=== PATIENT | female | born 1940 | race Caucasian/White ===

== ENCOUNTER 2018-01-26 17:41 | Inpatient (IN) | payer MEDICARE, OTHER ==
[~2018-01-26] VITALS: Ht 154.9 cm; Wt 53.7 kg
[~2018-01-26 17:41] MED LIST: SYNTHROID100 MCG PO
[2018-01-26] MEDS ORDERED: CEFAZOLIN SOD 1 GM/D5W 50ML 50 ML IV STA (19:30)
[2018-01-26] MEDS ORDERED: ONDANSETRON HCL INJ 2 MG/ML VIAL IV STA (20:02)
[2018-01-26] MEDS ORDERED: LEVOFLOXACIN 500MG/D5W 100ML 100 ML IV STA (20:48)
[2018-01-26] MEDS ORDERED: CEFTRIAXONE SOD 1 GM VIAL IM STA (20:48)
[2018-01-26] MEDS: SODIUM CHLORIDE 0.9% 1000ML 1,000 ML IV SCH (21:00)
[2018-01-26] MEDS: CEFTRIAXONE SOD 1 GM VIAL IV SCH (21:00)
[2018-01-26] MEDS: ONDANSETRON HCL INJ 2 MG/ML VIAL IV PRN (22:18)
[2018-01-26] MEDS ORDERED: TRAMADOL HCL 50 MG TAB PO PRN (23:30)
[2018-01-27] VITALS (8 sets, daily range): BP systolic 109–157; BP diastolic 55–70
[2018-01-27] MEDS: ONDANSETRON HCL INJ 2 MG/ML VIAL IV PRN ×2 (02:21→08:15)
[2018-01-27 04:50] LABS: BASOPHILS % 0.3 % (0.0-1.0); HEMATOCRIT 37.9 % (34.2-44.1); HEMOGLOBIN 12.6 g/dL (12.0-16.0); LYMPHOCYTES # (AUTO) 0.9 (1.0-3.2); LYMPHOCYTES % 5.8 % (18.0-39.1); MEAN CORPUSCULAR HEMOGLOBIN 32.4 pg (28-32); MEAN CORPUSCULAR HGB CONC 33.2 g/dL (31-35); MEAN CORPUSCULAR VOLUME 97.4 fL (81-99); MONOCYTES # (AUTO) 1.1 (0.2-0.8); MONOCYTES % 7.6 % (4.4-11.3); NEUTROPHILS # (AUTO) 12.7 (2.1-6.9); NEUTROPHILS % 85.8 % (38.7-80.0); PLATELET COUNT 171 x10e3/uL (140-360); RED BLOOD COUNT 3.89 x10e6/uL (3.6-5.1); RED CELL DISTRIBUTION WIDTH 13.5 % (11.7-14.4)
[2018-01-27 05:11] LABS: ANION GAP 13.9 mmol/L (8-16); BLOOD UREA NITROGEN 13 mg/dL (7-26); BUN/CREATININE RATIO 20 (6-25); CALCIUM 8.4 mg/dL (8.4-10.2); CARBON DIOXIDE 22 mmol/L (22-29); CHLORIDE 104 mmol/L (98-107); CREATININE, SERUM 0.66 mg/dL (0.57-1.11); EST GLOMERULAR FILTRATION RATE > 60 ML/MIN (60-); GLUCOSE 153 mg/dL (74-118); POTASSIUM 3.9 mmol/L (3.5-5.1); SODIUM 136 mmol/L (136-145)
[2018-01-27] MEDS ORDERED: VANCOMYCIN 1GM/NS 250 ML 250 ML IV SCH (07:15)
[2018-01-27] MEDS: ACETAMINOPHEN 325 MG TAB PO PRN ×3 (07:39→23:00)
[2018-01-27] MEDS: PANTOPRAZOLE 40 MG 10ML VIAL IV SCH (08:15)
[2018-01-27] MEDS ORDERED: DIPHENHYDRAMINE HCL INJ 50 MG/ML VIAL IV PRN (10:45)
[2018-01-27] MEDS ORDERED: DIPHENHYDRAMINE HCL INJ 50 MG/ML VIAL IV NR (10:45)
[2018-01-27] MEDS: SODIUM CHLORIDE 0.9% 1000ML 1,000 ML IV SCH ×2 (10:52→22:00)
[2018-01-27] MEDS: CEFTRIAXONE SOD 1 GM VIAL IV SCH ×2 (11:04→20:11)
[2018-01-27] MEDS ORDERED: DIPHENHYDRAMINE HCL 25 MG CAP PO ONE (11:15)
[2018-01-27] MEDS: CLINDAMYCIN 300MG 50 ML IV SCH ×2 (18:39→21:08)
[2018-01-27] MEDS: ZOLPIDEM TARTRATE 5 MG TAB PO PRN (20:45)
[2018-01-27] MEDS ORDERED: LEVOFLOXACIN 500MG/D5W 100ML 100 ML IV SCH (21:00)
[2018-01-28 00:13] VITALS: BP 102/51
[2018-01-28] MEDS: SODIUM CHLORIDE 0.9% 1000ML 1,000 ML IV SCH ×2 (01:31→14:53)
[2018-01-28] MEDS: CLINDAMYCIN 300MG 50 ML IV SCH ×3 (05:34→20:59)
[2018-01-28 05:35] VITALS: BP 149/64
[2018-01-28] MEDS: ACETAMINOPHEN 325 MG TAB PO PRN (05:54)
[2018-01-28] MEDS: CEFTRIAXONE SOD 1 GM VIAL IV SCH ×2 (08:36→20:59)
[2018-01-28] MEDS: PANTOPRAZOLE 40 MG 10ML VIAL IV SCH (08:36)
[2018-01-28 09:43] VITALS: BP 149/65
[2018-01-28 12:00] VITALS: BP 145/65
[2018-01-28 17:32] VITALS: BP 187/73
[2018-01-28] MEDS: ZOLPIDEM TARTRATE 5 MG TAB PO PRN (20:59)
[2018-01-28] MEDS: ONDANSETRON HCL INJ 2 MG/ML VIAL IV PRN (20:59)
[2018-01-29] VITALS (8 sets, daily range): BP systolic 126–183; BP diastolic 69–75
[2018-01-29] MEDS: CLINDAMYCIN 300MG 50 ML IV SCH ×3 (05:58→21:32)
[2018-01-29] MEDS: SODIUM CHLORIDE 0.9% 1000ML 1,000 ML IV SCH ×3 (05:58→20:33)
[2018-01-29 06:03] LABS: BASOPHILS % 0.4 % (0.0-1.0); EOSINOPHILS # (AUTO) 0.1 (0.0-0.4); EOSINOPHILS % 1.4 % (0.0-6.0); HEMATOCRIT 33.6 % (34.2-44.1); HEMOGLOBIN 11.1 g/dL (12.0-16.0); LYMPHOCYTES % 19.4 % (18.0-39.1); MEAN CORPUSCULAR HEMOGLOBIN 32.3 pg (28-32); MEAN CORPUSCULAR VOLUME 97.7 fL (81-99); MONOCYTES # (AUTO) 0.5 (0.2-0.8); MONOCYTES % 9.5 % (4.4-11.3); NEUTROPHILS # (AUTO) 3.4 (2.1-6.9); NEUTROPHILS % 68.7 % (38.7-80.0); PLATELET COUNT 173 x10e3/uL (140-360); RED BLOOD COUNT 3.44 x10e6/uL (3.6-5.1); RED CELL DISTRIBUTION WIDTH 13.5 % (11.7-14.4)
[2018-01-29 06:26] LABS: ALANINE AMINOTRANSFERASE 19 IU/L (0-55); ALBUMIN 2.5 g/dL (3.5-5.0); ALKALINE PHOSPHATASE 35 IU/L (40-150); ANION GAP 11.5 mmol/L (8-16); BLOOD UREA NITROGEN 6 mg/dL (7-26); BUN/CREATININE RATIO 10 (6-25); CALCIUM 7.6 mg/dL (8.4-10.2); CARBON DIOXIDE 23 mmol/L (22-29); CHLORIDE 113 mmol/L (98-107); CREATININE, SERUM 0.61 mg/dL (0.57-1.11); EST GLOMERULAR FILTRATION RATE > 60 ML/MIN (60-); GLUCOSE 96 mg/dL (74-118); POTASSIUM 3.5 mmol/L (3.5-5.1); SODIUM 144 mmol/L (136-145)
[2018-01-29] MEDS: PANTOPRAZOLE 40 MG 10ML VIAL IV SCH (09:15)
[2018-01-29] MEDS: ONDANSETRON HCL INJ 2 MG/ML VIAL IV PRN (09:15)
[2018-01-29] MEDS: CEFTRIAXONE SOD 1 GM VIAL IV SCH ×2 (09:15→20:33)
[2018-01-29] MEDS: ACETAMINOPHEN 325 MG TAB PO PRN (18:03)
[2018-01-29] MEDS: ZOLPIDEM TARTRATE 5 MG TAB PO PRN (21:32)
[2018-01-30] VITALS (8 sets, daily range): BP systolic 131–168; BP diastolic 60–75
[2018-01-30] MEDS: CLINDAMYCIN 300MG 50 ML IV SCH ×3 (05:23→21:28)
[2018-01-30] MEDS: ACETAMINOPHEN 325 MG TAB PO PRN (07:37)
[2018-01-30] MEDS: ONDANSETRON HCL INJ 2 MG/ML VIAL IV PRN (09:07)
[2018-01-30] MEDS: PANTOPRAZOLE 40 MG 10ML VIAL IV SCH (09:07)
[2018-01-30] MEDS: CEFTRIAXONE SOD 1 GM VIAL IV SCH ×2 (09:07→20:46)
[2018-01-30] MEDS: SODIUM CHLORIDE 0.9% 1000ML 1,000 ML IV SCH (12:52)
[2018-01-31] VITALS (7 sets, daily range): BP systolic 132–175; BP diastolic 63–76
[2018-01-31] MEDS: CLINDAMYCIN 300MG 50 ML IV SCH ×3 (06:31→21:11)
[2018-01-31] MEDS: ACETAMINOPHEN 325 MG TAB PO PRN ×2 (06:35→21:11)
[2018-01-31] MEDS: TRAMADOL HCL 50 MG TAB PO PRN ×2 (07:56→14:52)
[2018-01-31] MEDS: PANTOPRAZOLE 40 MG 10ML VIAL IV SCH (08:50)
[2018-01-31] MEDS: CEFTRIAXONE SOD 1 GM VIAL IV SCH ×2 (08:50→21:00)
[2018-01-31] MEDS: SODIUM CHLORIDE 0.9% 1000ML 1,000 ML IV SCH (13:30)
[2018-01-31] MEDS ORDERED: LORAZEPAM 0.5 MG TAB PO ONE (15:30)
--- NOTE | 2018-01-31 17:09 | Diagnostic Imaging Report ---
Examination: CT head without contrast Clinical Indication: Temporal and frontal headache. Technique: Transaxial noncontrast images from the skull base through the vertex were obtained. Sagittal and coronal reformatted images were done. Dose modulation, iterative reconstruction, and/or weight based adjustment of the mA/kV was utilized to reduce the radiation dose to as low as reasonably achievable. Comparison: The images are prior head CT performed on January 25, 2013 are inaccessible at this time. Findings: Scalp: No abnormalities. Bones: Intact. No fractures. No blastic or lytic lesions. Brain sulci: Appropriate for patient's age. Ventricles: Normal in size and configuration. No hydrocephalus. . Extra-axial space: No abnormalities. Parenchyma: There are confluent and patchy areas of low-attenuation within subcortical and periventricular white matter, nonspecific, but could represent microvascular ischemic disease. No masses, hemorrhage, or acute or chronic cortical based vascular insults. Suprasellar region: No abnormalities. Craniocervical junction: The foramen magnum is patent. No Chiari one malformation. Incidental findings: Atherosclerotic calcification of the cavernous and supraclinoid internal carotid and V4 segments of the bilateral vertebral arteries. Impression: 1. No acute intracranial finding. 2. Moderate chronic microvascular ischemic change. Signed by: Dr. Agata Martell M.D. on 01/31/2018 5:06 PM
[2018-02-01 00:10] VITALS: BP 166/71
[2018-02-01 04:35] VITALS: BP 163/76
[2018-02-01] MEDS: CLINDAMYCIN 300MG 50 ML IV SCH (05:24)
[2018-02-01] MEDS ORDERED: ONDANSETRON HCL 4 MG ORAL DISINTEGRATING TAB PO PRN (05:30)
[2018-02-01] MEDS ORDERED: DIPHENHYDRAMINE HCL 25 MG CAP PO PRN (05:30)
[2018-02-01 08:00] VITALS: BP 168/72
[2018-02-01 08:20] VITALS: BP 168/72
[2018-02-01] MEDS ORDERED: PANTOPRAZOLE SOD 40 MG TABEC PO SCH (09:00)
[2018-02-01 12:00] VITALS: BP 180/81
[2018-02-01] MEDS ORDERED: CIPROFLOXACIN 500 MG TAB PO SCH (12:00)
--- OUTSIDE RECORDS SUMMARY | 2018-03-07 04:24 | XMS REPORT ---
Author Author Michael Fong eClinicalWorks Address Unknown Phone Unavailable Care Team Providers Care Outboard System Operator Name Role Phone Michael Fong CP Unavailable Allergies, Adverse Reactions, Alerts Substance Reaction Event Type N.K.D.A. 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 Assessment Polymyalgia rheumatica M35.3 Active Assessment Oth disrd of bone density and structure, 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 Points: 0, Interpretation: Negative Mar 29, 2015 Tobacco Use: . Are you a:: never smoker Mar 29, 2015 Marital Status: . Mar 29, 2015 Caffeine: no. Mar 29, 2015 Exercise: yes. gym and walking Mar 29, 2015 Alcohol: no. Mar 29, 2015 Vital Signs Date/Time: Mar 29, 2015 Weight 107 lbs Height 62 in Temperature 97.1 F Cardiac Monitoring Heart Rate 74 /min Blood Pressure Diastolic 76 mm Hg Blood Pressure Systolic 112 mm Hg Summary Purpose eClinicalWorks Submission
--- OUTSIDE RECORDS SUMMARY | 2018-03-07 04:24 | XMS REPORT ---
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
--- OUTSIDE RECORDS SUMMARY | 2018-03-07 04:24 | XMS REPORT ---
Author Author Michael Fong eClinicalWorks Address Unknown Phone Unavailable Care Team Providers Care Aircraft Engine Assembler Name Role Phone Michael Fnog CP Unavailable Allergies, Adverse Reactions, Alerts Substance Reaction Event Type N.K.D.A. 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 Problem Polymyalgia rheumatica 725 Active Problem Osteoporosis M81.0 Active Problem Polymyalgia rheumatica M35.3 Active Assessment Polymyalgia rheumatica M35.3 Active Problem Unspecified retinal vascular occlusion 362.30 Active Problem Osteopenia 733.90 Active Medications Medication Code System Code Instructions Start Date End Date Status Dosage Vitamin D MEDISPAN [address]-45 2000 UNIT Orally Once a day Active 1 capsule Calcium + D MEDISPAN 00976-44721 315-200 MG-UNIT Orally qd Active 1 Synthroid MEDISPAN [address]-50 100 MCG Orally Once a day Active 1 tablet every morning on an empty stomach Social History Social History Element Qualifiers Date Reported Alcohol Screening: . Points: 0, Interpretation: Negative Jan 04, 2016 Tobacco Use: . Are you a:: never smoker Jan 04, 2016 Marital Status: . Jan 04, 2016 Caffeine: no. Jan 04, 2016 Exercise: yes. gym and walking Jan 04, 2016 Alcohol: no. Jan 04, 2016 Vital Signs Date/Time: Jan 04, 2016 Weight 104 lbs Height 62 in Temperature 97.8 F Cardiac Monitoring Heart Rate 68 /min Blood Pressure Diastolic 76 mm Hg Blood Pressure Systolic 120 mm Hg Summary Purpose eClinicalWorks Submission
--- OUTSIDE RECORDS SUMMARY | 2018-03-07 04:24 | XMS REPORT ---
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 Assessment 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 other part of lower leg I83.028 Active Medications Medication Code System Code Instructions Start Date End Date Status Dosage Synthroid [facility] 03625846243 100 MCG Once a day/brand necessary May 21, 2012 Active 1 tablet on an empty stomach in the morning Vital Signs Date/Time: December 26, 2016 BMI 19.02 Index Weight 104 lbs Blood Pressure Systolic 142 mm Hg Respiratory Rate 0 /min Cardiac Monitoring Heart Rate 49 /min Temperature 0 F Blood Pressure Diastolic 80 mm Hg Results No Known Results Summary Purpose eClinicalWorks Submission
--- OUTSIDE RECORDS SUMMARY | 2018-03-07 04:24 | XMS REPORT ---
Author Author Michael Fong [facility] eClinicalWorks Address Unknown Phone Unavailable Care Team Providers Care Police Records Clerk Name Role Phone Michael Fong CP Unavailable Allergies, Adverse Reactions, Alerts Substance Reaction Event Type N.K.D.A. 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 Assessment Polymyalgia rheumatica 725 Active Assessment Unspecified retinal vascular occlusion 362.30 Active Medications Medication Code System Code Instructions Start Date End Date Status Dosage Calcium + D MEDISPAN 00439-60014 315-200 MG-UNIT Orally qd Active 1 Vitamin D MEDISPAN [address]-85 2000 UNIT Orally Once a day Active 1 capsule Synthroid MEDISPAN [address]-28 100 MCG Orally Once a day Active 1 tablet every morning on an empty stomach Medrol MEDISPAN [address]-80 2 MG Orally once a day Active take 1 tablet by mouth daily Social History Social History Element Qualifiers Date Reported Alcohol Screening: . Points: 0, Interpretation: Negative Apr 10, 2014 Tobacco Use: . Are you a:: never smoker Apr 10, 2014 Marital Status: . Apr 10, 2014 Caffeine: no. Apr 10, 2014 Exercise: yes. gym and walking Apr 10, 2014 Alcohol: no. Apr 10, 2014 Vital Signs Date/Time: Apr 10, 2014 Weight 107 lbs Height 62 in Cardiac Monitoring Heart Rate 64 /min Blood Pressure Diastolic 70 mm Hg Blood Pressure Systolic 124 mm Hg Summary Purpose eClinicalWorks Submission
--- OUTSIDE RECORDS SUMMARY | 2018-03-07 04:24 | XMS REPORT ---
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
--- OUTSIDE RECORDS SUMMARY | 2018-03-07 04:24 | XMS REPORT ---
Author Author Michael Fong [facility] eClinicalWorks Address Unknown Phone Unavailable Care Team Providers Care Supervisor Roller Shop Name Role Phone Michael Fong Unavailable Encounters Encounter Location Date Refill Michael Fong MD Apr 13, 2014 DEXA Michael Fong MD Apr 07, 2014 Needs call back Michael oFng MD Apr 13, 2014 Problems Problem Type Condition ICD-9 Code Onset Dates Condition Status Problem Unspecified retinal vascular occlusion 362.30 Active Problem Osteopenia 733.90 Active Problem Polymyalgia rheumatica 725 Active Medications Medication Code System Code Instructions Start Date End Date Status Dosage Medrol MEDISPAN [address]-34 2 MG Orally once a day Apr 13, 2014August Active as directed Social History Social History Element Qualifiers Date Reported Alcohol Screening: . Points: 0, Interpretation: Negative Apr 10, 2014 Tobacco Use: . Are you a:: never smoker Apr 10, 2014 Marital Status: . Apr 10, 2014 Caffeine: no. Apr 10, 2014 Exercise: yes. gym and walking Apr 10, 2014 Alcohol: no. Apr 10, 2014 Summary Purpose eClinicalWorks Submission
--- OUTSIDE RECORDS SUMMARY | 2018-03-07 04:24 | XMS REPORT | Clinical Summary ---
Author Author [facility] Address Unknown Phone Unavailable Care Team Providers Care Reservations Specialist Name Role Phone Deejay Gregory MD PCP Allergies No Known Allergies Current Medications Prescription Sig. Disp. Refills Start End Date Status Date SYNTHROID 100 mcg tablet 1 tablet daily. 3 07/18/19 Active 17 vitamin E 400 UNIT Take 400 Units by mouth Active capsule daily. Active Problems Problem Noted Date Essential tremor 09/11/2016 Hypothyroidism 09/11/2016 Family History Medical History Relation Name Comments Heart attack Father Diabetes Mother Hypertension Mother Relation Name Status Comments Father (Age 89) Mother (Age 87) Social History Tobacco Use Types Packs/Day Years Used Date Never Smoker Smokeless Tobacco: Never Used Alcohol Use Drinks/Week oz/Week Comments No Sex Assigned at Date Recorded Not on file Last Filed Vital Signs Not on file Plan of Treatment Health Maintenance Due Date Last Done Comments SHINGRIX VACCINE (#1) 1989 ZOSTER VACCINE 1999 PNEUMOCOCCAL 2004 POLYSACCHARIDE VACCINE AGE 65 AND OVER PNEUMOCOCCAL-13 2004 INFLUENZA VACCINE 01/02/2018 Results Not on fileafter 01/25/2017 Insurance Payer Benefit Subscriber ID Type Phone Address Plan / Group MEDICARE MEDICARE xxxxxxxxxx Medicare [place], [place] PART A AND B [employer] xxxxxxxxxx Commercial L [employer] [place]
--- OUTSIDE RECORDS SUMMARY | 2018-03-07 04:24 | XMS REPORT | Summary of Care ---
Author Author MEL DIAZ M.D. Organization Unknown Address Unknown Phone Unavailable Care Team Providers Care Salvage Mechanic Name Role Phone MEL DIAZ M.D. Unavailable Unavailable CARMITA ALEXANDER [place], LYN Unavailable Unavailable Unavailable Unavailable Functional Status Name Dates Details Functional status health issues are not documented Status: Name Dates Details Cognitive status health issues are not documented Status: Problems Name Dates Details Medication monitoring encounter (V58.83, Z51.81) Status: Active Fatigue (780.79, R53.83) Status: Active Hyperlipemia (272.4, E78.5) Status: Active Adrenal insufficiency (255.41, E27.40) Status: Active B12 deficiency (266.2, E53.8) Status: Active Pedal edema (782.3, R60.0) Status: Active Memory disorder (780.93, R41.3) Status: Active Abnormal glucose (790.29, R73.09) Status: Active Vitamin D deficiency (268.9, E55.9) Status: Active Hypothyroidism (244.9, E03.9) Status: Active Medications Name Dates Details Synthroid 100 MCG Oral Tablet TAKE 1 TABLET BY MOUTH ONCE A DAY SUN TO SAT; 1-1/2 TABLET ON SUNDAYS Start 04-21 Quantity: 95 JOE M.D., MEL * Start : 20-Jun-2013 Active Vitamin D3 2000 UNIT Oral Capsule 1 a day * Refills: 0 JOE M.D., MEL * Start : 27-Nov-2013 Active Primidone 50 MG Oral Tablet * Refills: 0 JOE M.D., MEL * Start : 11-Dec-2017 Active Allergies and Adverse Reactions Name Dates Details No Known Drug Allergies (Allergy) Status: Active Past Medical History Name Dates Details History of Anxiety (300.00, F41.9) Status: Resolved History of fracture of phalanx of toe (V15.51, Z87.81) Status: Resolved 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, 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 Procedures Procedure Dates Details [QL] TSH, 3RD GENERATION Date: 11-Dec-2017 [QLH] T4, FREE Date: 11-Dec-2017 History of Thyroid Surgery Sub-Total Thyroidectomy Completed History of Hysterectomy Completed Immunization Name Dates Details Immunizations not documented Family History Name Dates Details Family history of Diabetes Mellitus (V18.0) Status: Active Social History Name Dates Details - Status: Name Dates Details Never smoker Vital Signs Date Test Result Details [id number] BP Systolic 146 mm[Hg] Status: BP Diastolic 70 mm[Hg] Status: Heart Rate 80 /min Status: Weight 104.4 lb Status: Body Mass Index Calculated 19.1 kg/m2 Status: Body Surface Area Calculated 1.45 m2 Status: Results Date Description Value Details [id number] [QLH] T4, FREE T4 Free 0.92 ng/dl Range: 0.76-1.46 79-[id number]:23 [QLH] TSH, 3RD GENERATION TSH 6.210 {uIU/ml} (Above high threshold) Range: 0.360-3.740 Plan of Care Name Dates Details Planned Observations [QLH] TSH, 3RD GENERATION On: 11-Feb-2018 Intent [QLH] T4, FREE On: 11-Feb-2018 Intent Planned Goals not documented Planned Encounters Appointment; MEL DIAZ M.D. On: 15-Apr-2018 8:00 Interventions Provided Medication Changes* Synthroid 100 MCG Oral Tablet - Renew Labs/Procedures/Imaging* [QLH] T4, FREE; Done: 11 Dec 2017 * [QLH] TSH, 3RD GENERATION; Done: 11 Dec 2017 Instructions* Patient Specific Education Given; Done: 11 Dec 2017 Instructions Name Dates Details Instructions not documented Encounters Appointment; MEL DIAZ M.D. Encounter Diagnosis: Problem not documented On: 25-Jul-2016 15:15 Appointment; MEL DIAZ M.D. Encounter Diagnosis: Problem not documented On: 27-Nov-2016 13:00 Appointment; MEL DIAZ M.D. Encounter Diagnosis: Problem not documented On: 29-Mar-2017 8:00 Appointment; MEL DIAZ M.D. Encounter Diagnosis: Problem not documented On: 06-Aug-2017 8:00 Appointment; MEL DIAZ M.D. Encounter Diagnosis: Problem not documented On: 11-Dec-2017 8:00
--- OUTSIDE RECORDS SUMMARY | 2018-03-07 04:24 | XMS REPORT ---
Author Author Michael Fong [facility] eClinicalWorks Address Unknown Phone Unavailable Care Team Providers Care Gardening Supervisor Name Role Phone Michael Fong Unavailable Encounters Encounter Location Date Refill Michael Fong MD Apr 13, 2014 DEXA Michael Fong MD Apr 07, 2014 Needs call back Michael Fong MD Apr 13, 2014 Problems Problem Type Condition ICD-9 Code Onset Dates Condition Status Problem Unspecified retinal vascular occlusion 362.30 Active Problem Osteopenia 733.90 Active Problem Polymyalgia rheumatica 725 Active Social History Social History Element Qualifiers Date [...]
--- OUTSIDE RECORDS SUMMARY | 2018-03-07 04:24 | XMS REPORT ---
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 Points: 0, Interpretation: Negative Jan 04, 2016 Tobacco Use: . Are you a:: never smoker Jan 04, 2016 Marital Status: . Jan 04, 2016 Caffeine: no. Jan 04, 2016 Exercise: yes. gym and walking Jan 04, 2016 Alcohol: no. Jan 04, 2016 Summary Purpose eClinicalWorks Submission
--- OUTSIDE RECORDS SUMMARY | 2018-03-07 04:24 | XMS REPORT ---
Author Author Michael Fong [facility] eClinicalWorks Address Unknown Phone Unavailable Care Team Providers Care Barratte Operator Name Role Phone Michael Fong Unavailable Encounters [...]
--- OUTSIDE RECORDS SUMMARY | 2018-03-07 04:24 | XMS REPORT ---
Author Author Chantelle Duarte [facility] eClinicalWorks Address Unknown Phone Unavailable Care Team Providers Care Lawn Specialist Name Role Phone Chantelle Duarte Unavailable Allergies, Adverse Reactions, Alerts Substance Reaction Event Type N.K.D.A. 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 Problem Low vitamin D level E55.9 Active Assessment Low vitamin D level E55.9 Active Problem Polymyalgia rheumatica M35.3 Active Assessment Osteoporosis M81.0 Active Medications Medication Code System Code Instructions Start Date End Date Status Dosage Synthroid [facility] 20353162260 100 MCG Orally Once a day Active 1 tablet every morning on an empty stomach Vitamin D ND 33293902796 2000 UNIT Orally Once a day Active 1 capsule Calcium + D [facility] 52354331194 315-200 MG-UNIT Orally qd Active 1 Vital Signs Date/Time: May 07, 2017 BMI 19.39 Index Weight 106 lbs Height 62 in Temperature 97.0 F Cardiac Monitoring Heart Rate 74 /min Blood Pressure Diastolic 74 mm Hg Blood Pressure Systolic 122 mm Hg Results Name Result Date Reference Range Unit Abnormality Flag CBC (INCLUDES DIFF/PLT) ----ABSOLUTE NEUTROPHILS 3929 [id number] 8965-2660 cells/uL N ----MPV 10.4 35157092 7.5-12.5 fL N ----EOSINOPHILS 0.8 80090363 % N ----HEMOGLOBIN 13.5 17609717 11.7-15.5 g/dL N ----MONOCYTES 9.3 19075082 % N ----HEMATOCRIT 40.8 76023250 35.0-45.0 % N ----LYMPHOCYTES 22.6 46722968 % N ----MCV 92.7 08138173 80.0-100.0 fL N ----NEUTROPHILS 66.6 27874292 % N ----MCH 30.7 15252967 27.0-33.0 pg N ----ABSOLUTE BASOPHILS 41 88660585 0-200 cells/uL N ----MCHC 33.1 07913974 32.0-36.0 g/dL N ----BASOPHILS 0.7 04344636 % N ----ABSOLUTE EOSINOPHILS 47 70013777 15-500 cells/uL N ----RDW 13.1 82028233 11.0-15.0 % N ----WHITE BLOOD CELL COUNT 5.9 32763426 3.8-10.8 Thousand/uL N ----PLATELET COUNT 259 11613899 140-400 Thousand/uL N ----ABSOLUTE MONOCYTES 549 26060890 200-950 cells/uL N ----RED BLOOD CELL COUNT 4.40 57588657 3.80-5.10 Million/uL N ----ABSOLUTE LYMPHOCYTES 1333 29954558 850-3900 cells/uL N VITAMIN D, 25-HYDROXY, LC/MS/MS ----VITAMIN D, 25-OH, TOTAL 39 06709280 30-100 ng/mL N COMPREHENSIVE METABOLIC PANEL W/EGFR ----SODIUM 141 48244811 135-146 mmol/L N ----BUN/CREATININE RATIO NOT APPLICABLE [id number] 6-22 (calc) ----CHLORIDE 104 43288122 98-110 mmol/L N ----POTASSIUM 4.1 15120612 3.5-5.3 mmol/L N ----CALCIUM 10.0 15204738 8.6-10.4 mg/dL N ----PROTEIN, TOTAL 6.7 60132333 6.1-8.1 g/dL N ----CARBON DIOXIDE 29 17050822 20-31 mmol/L N ----ALBUMIN/GLOBULIN RATIO 1.9 03933249 1.0-2.5 (calc) N ----eGFR NON-AFR. BRUNEIAN 84 [id number] > OR=60 mL/min/1.73m2 N ----BILIRUBIN, TOTAL 0.5 90276759 0.2-1.2 mg/dL N ----eGFR 97 36160098 > OR=60 mL/min/1.73m2 N ----UREA NITROGEN (BUN) 20 40449735 7-25 mg/dL N ----ALBUMIN 4.4 57373936 3.6-5.1 g/dL N ----GLOBULIN 2.3 88348293 1.9-3.7 g/dL (calc) N ----CREATININE 0.68 92530694 0.60-0.93 mg/dL N ----ALT 18 16780407 6-29 U/L N ----GLUCOSE 81 63601820 65-99 mg/dL N ----ALKALINE PHOSPHATASE 50 66476203 33-130 U/L N ----AST 27 [id number] 10-35 U/L N Summary Purpose eClinicalWorks Submission
--- OUTSIDE RECORDS SUMMARY | 2018-03-07 04:25 | XMS REPORT | Clinical Summary ---
Author Author [facility] Address Unknown Phone Unavailable Care Team Providers Care Taxation Agent Name Role Phone Deejay Gregory MD PCP [...] Plan / Group MEDICARE MEDICARE xxxxxxxxxx Medicare [place], [place] PART A AND B [employer] xxxxxxxxxx Commercial L [employer] [place]
--- NOTE | 2018-03-18 03:51 | Discharge Summary ---
DISCHARGE DIAGNOSIS: Right lower extremity cellulitis. HISTORY OF PRESENT ILLNESS AND HOSPITAL COURSE: Patient is an elderly lady who failed outpatient therapy for right lower extremity cellulitis, so she was brought in and placed on IV antibiotics. Initial blood cultures were positive. She was switched over to p.o. Bactrim, but unfortunately she was not able to tolerate that due to nausea, so she was then switched over to p.o. Cipro and discharged home. She will follow up in 1 week with me. Please see hospital chart for full details. Job#: [id number]
== END 2018-02-01 13:40 | disposition home or self-care (01) | DRG 872 ==
LOC: FSED 17:41 → ERHOLD 21:01 → MED/SURG2 22:32 → OBSVTOIN 01-28 09:41
PROVIDERS: ADMIT Internal Medicine; ATTEND Internal Medicine
DX: A41.9 Sepsis, unspecified organism (principal); L03.115 Cellulitis of right lower limb; S81.811A Laceration without foreign body, right lower leg, initial encounter; I10 Essential (primary) hypertension; Z82.49 Family history of ischemic heart disease and other diseases of the circulatory system; K21.9 Gastro-esophageal reflux disease without esophagitis; B96.89 Other specified bacterial agents as the cause of diseases classified elsewhere; Z16.29 Resistance to other single specified antibiotic
CPT/HCPCS: 36415; 70450; 80048; 80053; 82948; 83605; 85025; 87040; 87071; 87186; 87205; 99284; G0378; J0690; J0696; J1200; J2405; J3370; J7030

== ENCOUNTER 2018-05-20 17:04 | Emergency (ER) | payer MEDICARE ==
[~2018-05-20] VITALS: Ht 157.5 cm; Wt 47.2 kg
--- OUTSIDE RECORDS SUMMARY | 2018-05-20 17:07 | XMS REPORT | Clinical Summary ---
Author Author [facility] Address Unknown Phone Unavailable Care Team Providers Care Site Administrator Name Role Phone Keegan Gregory MD PCP Allergies No Known Allergies Medications End Date Status Medication Sig Dispensed Refills Start Date Active SYNTHROID 100 mcg tablet 1 tablet 3 daily. 7 Active vitamin E 400 UNIT Take 400 0 capsule Units by mouth daily. Active Problems Problem Noted Date Essential tremor 09/11/2016 Hypothyroidism 09/11/2016 Family History Medical History Relation Name Comments Heart attack Father Diabetes Mother Hypertension Mother Relation Name Status Comments Father (Age 89) Mother (Age 87) Social History Date Tobacco Use Types Packs/Day Years Used Never Smoker Smokeless Tobacco: Never Used Alcohol Use Drinks/Week oz/Week Comments No Sex Assigned at Date Recorded Not on file Industry Job Start Date Occupation Not on file Not on file Not on file Travel End Travel History Travel Start No recent travel history available. Last Filed Vital Signs Not on file Plan of Treatment Health Maintenance Due Date Last Done Comments SHINGLES VACCINES (1 of 1989 2) PNEUMOCOCCAL 2004 POLYSACCHARIDE VACCINE AGE 65 AND OVER PNEUMOCOCCAL-13 2004 INFLUENZA VACCINE 01/02/2018 Results Not on fileafter 05/19/2017 Insurance Payer Benefit Subscriber ID Type Phone Address Plan / Group MEDICARE MEDICARE xxxxxxxxxx [place] PART A AND B [employer] xxxxxxxxxx Commercial L LIFE INS In[employer]ly [employer] [place] Advance Directives Patient has advance care planning documents on file. For more information, michele najera contact: Vineet Jimenez [address] [facility] [place] [address]
--- OUTSIDE RECORDS SUMMARY | 2018-05-20 17:07 | XMS REPORT ---
Author Author [facility] Address Unknown Phone Unavailable Care Team Providers Care Library Page Name Role Phone PATT SMITH Unavailable Unavailable Problems This patient has no known problems. Allergies, Adverse Reactions, Alerts This patient has no known allergies or adverse reactions. Medications This patient has no known medications. Results Test Description Test Time Test Comments Text Results Atomic Results Result Comments CT BRAIN WO 2018-01-31 17:04:00 [facility] [address] [address] Patient Name: ISIDORO JOHNSON MR #: [id number] : 1940 Age/Sex: 77/F Req #: [id number] [facility] Physician: PATT SMITH MD Ordered by: PATT SMITH MD Report #: [id number] Location: MED/SURG Room/Bed: [facility] Procedure: [id number] CT/CT BRAIN WO Exam Date: 01/31/18 Exam Time: 1602 REPORT STATUS: Signed Examination: CT head without contrast Clinical Indication: Temporal and frontal headache. Technique: Transaxial noncontrast images from the skull base through the vertex were obtained. Sagittal and coronal reformatted images were done. Dose modulation, iterative reconstruction, and/or weight based adjustment of the mA/kV was utilized to reduce the radiation dose to as low as reasonably achievable. Comparison: The images are prior head CT performed on January 25, 2013 are inaccessible at this time. Findings: Scalp: No abnormalities. Bones: Intact. No fractures. No blastic or lytic lesions. Brain sulci: Appropriate for patient's age. Ventricles: Normal in size and configuration. No hydrocephalus. . Extra-axial space: No abnormalities. Parenchyma: There are confluent and patchy areas of low-attenuation within subcortical and periventricular white matter, nonspecific, but could represent microvascular ischemic disease. No masses, hemorrhage, or acute or chronic cortical based vascular insults. Suprasellar region: No abnormalities. Craniocervical junction: The foramen magnum is patent. No Chiari one malformation. Incidental findings: Atherosclerotic calcification of the cavernous and supraclinoid internal carotid and V4 segments of the bilateral vertebral arteries. Impression: 1. No acute intracranial finding. 2. Mode rate chronic microvascular ischemic change. Signed by: Dr. Agata Martell M.D. on 01/31/2018 5:06 PM Dictated By: AGATA FOOTE MD 05 Transcribed By: AARON on 01/31/181705 COPY TO: PATT SMITH MD
--- OUTSIDE RECORDS SUMMARY | 2018-05-20 17:07 | XMS REPORT | Summary of Care ---
Author Author MEL DIAZ M.D. Organization Unknown Address Unknown Phone Unavailable Care Team Providers Care Senior Director Of Strategy Name Role Phone MEL DIAZ M.D. 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, E04.9) Status: Resolved Procedures Procedure Dates Details [[facility]] T4, FREE Date: 15-Apr-2018 [[facility]] TSH, 3RD GENERATION Date: 15-Apr-2018 History of Thyroid Surgery Sub-Total Thyroidectomy Completed History of Hysterectomy Completed Immunization Name Dates Details Immunizations not documented Family History Name Dates Details Family history of Diabetes Mellitus (V18.0) Status: Active Social History Name Dates Details - Status: Name Dates Details Never smoker Vital Signs Date Test Result Details 12-Hdf-52875:12 BP Systolic 177 mm[Hg] Status: Comments: Location: LUE; Position: Sitting BP Diastolic 69 mm[Hg] Status: Comments: Location: LUE; Position: Sitting Height 62 in Status: Weight 106.5625 lb Status: Body Mass Index Calculated 19.49 kg/m2 Status: Body Surface Area Calculated 1.46 m2 Status: Heart Rate 62 /min Status: Results Date Description Value Details 81-Yng-69873:57 [[facility]] T4, FREE T4 Free 1.64 ng/dl (Above high threshold) Range: 0.76-1.46 80-Wqe-88654:57 [[facility]] TSH, 3RD GENERATION TSH 2.910 {uIU/ml} Range: 0.360-3.740 Plan of Care Name Dates Details Planned Observations Planned Goals not documented Planned Encounters Appointment; MEL DIAZ M.D. On: 29-Jul-2018 9:00 Interventions Provided Medication Changes* Synthroid 100 MCG Oral Tablet - Renew Instructions Name Dates Details Instructions not documented [...] Diagnosis: Problem not documented On: 11-Dec-2017 8:00 Appointment; MEL DIAZ M.D. Encounter Diagnosis: Problem not documented On: 15-Apr-2018 8:00
--- OUTSIDE RECORDS SUMMARY | 2018-05-20 17:07 | XMS REPORT | Continuity of Care Document ---
Author Author [facility] Address Unknown Phone Unavailable Problems Problem Status Onset Date Classification Date Reported Comments Source Osteoporosis Active Problem 05/12/2017 [facility] Oth disrd of bone density and structure, multiple sites Active Problem 05/12/2017 [facility] Low vitamin D level Active Problem 05/12/2017 [facility] Polymyalgia rheumatica Active Problem 05/12/2017 [facility] Varicose veins of bilateral lower extremities with other complications Active Problem 05/26/2017 [facility] Cellulitis of right lower limb Active Problem 05/26/2017 [facility] 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 other part of lower leg Active Problem 05/26/2017 [facility] Unspecified retinal vascular occlusion Active Problem 01/06/2016 [facility] Osteopenia Active Problem 01/06/2016 [facility] Polymyalgia rheumatica Active Problem 01/06/2016 [facility] Osteoporosis, postmenopausal Active Diagnosis 07/02/2014 [facility] Medications Medication Details Route Status Patient Instructions Ordering Provider Order Date Source Above the knee Compression Stockings as directed NA Active 20- 30mmHg Emygi 12/27/2016 [facility] Medrol 1 tablet Orally Active 2 MG Orally once a day [place] 08/26/2015 John Fong Medrol as directed Orally Active 2 MG Orally once a day [place] 04/13/2014 [facility] Fong Synthroid 1 tablet on an empty stomach in the morning NA Active 100 MCG Once a day/brand necessary [place] 05/21/2012 [facility] Calcium + D 1 Orally Active 315-200 MG-UNIT Orally qd Fong [facility] Vitamin D 1 capsule Orally Active 2000 UNIT Orally Once a day [facility]ong [facility] Synthroid 1 tablet every morning on an empty stomach Orally Active 100 MCG Orally Once a day Fong [facility]ong Medrol take 1 tablet by mouth daily Orally Active 2 MG Orally once a day Fong [facility] Synthroid 1 tablet every morning on an empty stomach Orally Active 100 MCG Orally Once a day Gerald [facility] Vitamin D 1 capsule Orally Active 2000 UNIT Orally Once a day Gerald [facility] Calcium + D 1 Orally Active 315-200 MG-UNIT Orally qd Gerald [facility] Allergies, Adverse Reactions, Alerts Substance Category Reaction Severity Reaction type Status Date Reported Comments Source Bactriron Adverse Reaction anaphylaxis Adverse Reaction Active 12/26/2016 [facility] Adverse Reaction Info Not Available Adverse Reaction Active 05/07/2017 [facility] Immunizations Immunization Date Given Site Status Last Updated Comments Source Results Order Name Results Value Reference Range Date Interpretation Comments Source Vital Signs Vital Sign Value Date Comments Source Weight 106 05/07/2017 [facility] Height 62 05/07/2017 [facility] Temperature Oral (F) 97.0 F 05/07/2017 [facility] Heart Rate 74 05/07/2017 [facility] Diastolic (mm Hg) 74 05/07/2017 [facility] Systolic (mm Hg) 122 05/07/2017 [facility] Weight 104 12/26/2016 [facility] Systolic (mm Hg) 142 12/26/2016 [facility] Respitory Rate 0 12/26/2016 [facility] Heart Rate 49 12/26/2016 [facility] Temperature Oral (F) 0 F 12/26/2016 [facility] Diastolic (mm Hg) 80 12/26/2016 [facility] Weight 104 01/04/2016 [facility] Height 62 01/04/2016 [facility] Temperature Oral (F) 97.8 F 01/04/2016 [facility] Heart Rate 68 01/04/2016 [facility] Diastolic (mm Hg) 76 01/04/2016 [facility] Systolic (mm Hg) 120 01/04/2016 [facility] Weight 107 03/29/2015 [facility] Height 62 03/29/2015 [facility] Temperature Oral (F) 97.1 F 03/29/2015 [facility] Heart Rate 74 03/29/2015 [facility] Diastolic (mm Hg) 76 03/29/2015 [facility] Systolic (mm Hg) 112 03/29/2015 [facility] Weight 107 04/10/2014 John Fong Height 62 04/10/2014 John Fong Heart Rate 64 04/10/2014 John Fong Diastolic (mm Hg) 70 04/10/2014 John Fong Systolic (mm Hg) 124 04/10/2014 John Fong Encounters Location Location Details Encounter Type Encounter Number Reason For Visit Attending Provider ADM Date DC Date Status Source Michael Fong MD DEXA [id number] 04/07/2014 04/07/2014 John Fong MD DEXA [id number] 04/07/2014 04/07/2014 John Fong MD DEXA [id number] 04/07/2014 04/07/2014 John Fong MD DEXA [id number] 04/07/2014 04/07/2014 John Fong MD DEXA [id number] 04/07/2014 04/07/2014 John Fong MD DEXA [id number] 04/07/2014 04/07/2014 John Fong MD DEXA [id number] 04/07/2014 04/07/2014 John Fong MD 4m follow up [id number] 04/10/2014 04/10/2014 John Fong MD 4m follow up [id number] 04/10/2014 04/10/2014 John Fong MD 4m follow up [id number] 04/10/2014 04/10/2014 John Fong MD 4m follow up [id number] 04/10/2014 04/10/2014 John Fong MD Refill [id number] 04/13/2014 04/13/2014 John Fong MD Refill [id number] 04/13/2014 04/13/2014 John Fong MD Needs call back [id number] 04/13/2014 04/13/2014 John Fong MD Needs call back [id number] 04/13/2014 04/13/2014 John Fong MD Refill [id number] 04/13/2014 04/13/2014 John Fong MD Refill [id number] 04/13/2014 04/13/2014 John Fong MD Refill [id number] 04/13/2014 04/13/2014 John Fong MD Refill [id number] 04/13/2014 04/13/2014 John Fong MD Refill [id number] 04/13/2014 04/13/2014 John Fong MD Needs call back [id number] 04/13/2014 04/13/2014 John Fong MD Needs call back [id number] 04/13/2014 04/13/2014 John Fong MD Needs call back [id number] 04/13/2014 04/13/2014 John Fong MD Needs call back [id number] 04/13/2014 04/13/2014 John Fong MD Needs call back [id number] 04/13/2014 04/13/2014 John Fong MD 6M F/U [id number] 10/09/2014 10/09/2014 John Fong MD 6M F/U [id number] 10/09/2014 10/09/2014 John Fong MD 6M F/U [id number] 10/09/2014 10/09/2014 John Fong MD Unknown [id number] 03/29/2015 03/29/2015 John Fong MD Unknown [id number] 03/29/2015 03/29/2015 John Fong MD Unknown [id number] 03/29/2015 03/29/2015 John Fong MD [facility] [id number] 01/04/2016 01/04/2016 John Fong MD [facility] [id number] 01/04/2016 01/04/2016 John Fong MD [facility] [id number] 01/04/2016 01/04/2016 John [facility] Procedures Procedure Code Date Perfomer Comments Source
[2018-05-20] MEDS ORDERED: CLINDAMYCIN PHOS 600 MG/ 4 ML VIAL IM ONE (19:00)
[2018-05-20 19:24] VITALS: BP 170/88
== END 2018-05-20 19:13 | disposition home or self-care (01) ==
LOC: FSED 17:04
DX: S81.011A Laceration without foreign body, right knee, initial encounter (principal); S81.012A Laceration without foreign body, left knee, initial encounter; S50.311A Abrasion of right elbow, initial encounter; W01.0XXA Fall on same level from slipping, tripping and stumbling without subsequent striking against object, initial encounter; Y92.015 Private garage of single-family (private) house as the place of occurrence of the external cause; E03.9 Hypothyroidism, unspecified
CPT/HCPCS: 99282

== ENCOUNTER 2018-12-05 05:34 | Observation (INO) | payer MEDICARE, OTHER ==
[~2018-12-05] VITALS: Ht 157.5 cm; Wt 47.6 kg
--- OUTSIDE RECORDS SUMMARY | 2018-12-05 05:38 | XMS REPORT | Clinical Summary ---
Author Author [facility] Address Unknown Phone Unavailable Care Team Providers Care Infrastructure Manager Name Role Phone Keegan Gregory MD PCP Allergies No Known Allergies Medications End Date Status Medication Sig Dispensed Refills Start Date Active SYNTHROID 100 mcg tablet 1 tablet 3 daily. 7 Active vitamin E 400 UNIT Take 400 0 capsule Units by mouth daily. 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 (Primary Dx); Abdominal pain, epigastric; Special screening for malignant neoplasms, colon; Loss of weight 07/11/2018 Transcribe Access Orders after 12/04/2017 Family History Medical History Relation Name Comments [...] Due Date Last Done Comments SHINGLES VACCINES (#1) 1989 65+ PNEUMOCOCCAL VACCINE 2004 (1 of 2 - PCV13) INFLUENZA VACCINE 01/02/2019 Procedures Comments Procedure Name Priority Date/Time Associated Diagnosis ESTIMATED GFR Routine 07/16/2018 9:46 AM [employer]ILING T[employer] OPERATOR POC CREATININE Routine 07/16/2018 9:46 AM TETRYL BOILING TUB OPERATOR CT ABDOMEN W WO CONTRAST Routine 07/16/2018 Ectopic pancreatic tissue 9:36 AM [employer] BOILING TUB OPERATOR in stomach Abdominal pain, epigastric Special screening for malignant neoplasms, colon Loss of weight after 12/04/2017 Results * Estimated GFR (07/16/2018 9:46 AM TETRYL BOILING TUB OPERATOR) Pathologist [facility] Estimated GFR 39 (A) mL/min/1.73 m2 [facility] Comment: [facility] rpretation G1 >=90 Normal or high G2 60-89Mildly decreased K6t27-53 Mildly to moderately decreased N4c06-27 Moderately to severely decreased G4 15-29Severely decreased G5 <15Kidney failure The eGFR was calculated using the Chronic Kidney Disease Epidemiology Collaboration (CKD-EPI) equation. Interpretation is based on recommendations of the National Kidney Foundation-Kidney Disease Outcomes Quality Initiative (NKF-KDOQI) published in 2014. Specimen Blood Performing Organization Address [facility] Phone Number [address] [place] [address] PATHOLOGY AND GENOMIC MEDICINE [address] * POC creatinine (07/16/2018 9:46 AM TETRYL BOILING TUB OPERATOR) Pathologist [facility] POC creatinine 1.3 (H) 0.5 - 0.9 mg/dl [facility] Specimen Blood Performing Organization Address [facility] Phone Number [address] [place] [address] PATHOLOGY AND GENOMIC MEDICINE [address] * CT Abdomen W Wo Contrast (07/16/2018 9:36 AM TETRYL BOILING TUB OPERATOR) Specimen Narrative Performed At EXAMINATION:CT ABDOMEN W WO CONTRAST [facility] CLINICAL HISTORY: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 Sagittal and coronal computerized reformatted images were also obtained. Scan was performed using radiation dose reduction techniques. COMPARISON:April 17, 2007 FINDINGS: Pancreas demonstrates severe atrophy with numerous scattered cysts. Most of these cysts are subcentimeter. There is a dominant cyst in the tail measuring 2.7 x 2.0 cm. No thick enhancing septation or mural nodule is demonstrated. Main pancreatic duct is nondilated. No biliary dilatation. No suspicious hepatic lesion. There is a 2 cm cyst in segment 3. Another punctate lesion in segment 5 is too small to characterize. Subcentimeter subcapsular hypervascular focus in segment 6 (series 4 image 58) may be perfusion anomaly or flash filling hemangioma. Unremarkable gallbladder. Spleen is normal in size. Subcentimeter hypodensity in the right kidney midpole is too small to characterize but likely a cyst. No adrenal mass. No free fluid or fluid collection. Scattered diverticulosis in the colon. 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 Endoscopic ultrasound/FNA or 6 month imaging follow-up is suggested for dominant cyst in the tail measuring 2.7 x 2.0 cm. No definite signs of malignancy. 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 Sagittal and coronal computerized reformatted images were also obtained. Scan was performed using radiation dose reduction techniques. COMPARISON: April 17, 2007 FINDINGS: Pancreas demonstrates severe atrophy with numerous scattered cysts. Most of these cysts are subcentimeter. There is a dominant cyst in the tail measuring 2.7 x 2.0 cm. No thick enhancing septation or mural nodule is demonstrated. Main pancreatic duct is nondilated. No biliary dilatation. No suspicious hepatic lesion. There is a 2 cm cyst in segment 3. Another punctate lesion in segment 5 is too small to characterize. Subcentimeter subcapsular hypervascular focus in segment 6 (series 4 image 58) may be perfusion anomaly or flash filling hemangioma. Unremarkable gallbladder. Spleen is normal in size. Subcentimeter hypodensity in the right kidney midpole is too small to characterize but likely a cyst. No adrenal mass. No free fluid or fluid collection. Scattered diverticulosis in the colon. 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 Endoscopic ultrasound/FNA or 6 month imaging follow-up is suggested for dominant cyst in the tail measuring 2.7 x 2.0 cm. No definite signs of malignancy. [facility]-[id number] Performing Organization Address City/State/Zipcode Phone Number [place] [address] [place] [address] after 12/04/2017 Insurance Type Payer Benefit Subscriber ID Effective Phone Address Plan / Dates Group Medicare MEDICARE MEDICARE xxxxxxxxxxx 2004- [place], PART A AND Present [place] Commercial [employer] xxxxxxxxxx 2004- L LIFE INS Present [place] Advance Directives Patient has advance care planning documents on file. For more information, michele najera contact: Vineet Jimenez [address] [place] [address]
--- OUTSIDE RECORDS SUMMARY | 2018-12-05 05:39 | XMS REPORT | Summary of Care ---
Author Author Abhijit Banks, Cindy Organization Unknown Address Unknown Phone Unavailable Care Team Providers Care Territory Development Manager Name Role Phone JOE Still, MEL Unavailable Unavailable Cindy Lacey R.N. Unavailable Unavailable CARMITA ALEXANDER, LYN Unavailable Unavailable MEL SWENSON MD Unavailable Unavailable Unavailable Unavailable Functional Status Name [...] BY MOUTH ONCE A DAY SUN TO SUNDAY Start 07-29-18 Quantity: 90 JOE M.Ame., MEL * Start : 20-Jun-2013 Active Vitamin D3 2000 UNIT Oral Capsule 1 a day * Refills: 0 JOE M.Ame., MEL * Start : 27-Nov-2013 Active hydroCHLOROthiazide 25 MG Oral Tablet TAKE 1 TABLET DAILY. 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, E04.9) Status: Resolved Procedures Procedure Dates Details History of Thyroid Surgery Sub-Total Thyroidectomy Completed History of Hysterectomy Completed Immunization Name Dates Details Immunizations not documented Family History Name Dates Details Family history of Diabetes Mellitus (V18.0) Status: Active Social History Name Dates Details - Status: Name Dates Details Never smoker Vital Signs Date Test Result Details :53 BP Systolic 150 mm[Hg] Status: BP Diastolic 72 mm[Hg] Status: Heart Rate 60 /min Status: :33 BP Systolic 154 mm[Hg] Status: Comments: Location: LUE; Position: Sitting BP Diastolic 66 mm[Hg] Status: Comments: Location: LUE; Position: Sitting Heart Rate 52 /min Status: Height 62 in Status: Weight 100.0625 lb Status: Body Mass Index Calculated 18.3 kg/m2 Status: Body Surface Area Calculated 1.42 m2 Status: Results Date Description Value Details 14-Lra-800429:21 [QL] T4, FREE T4 Free 1.32 ng/dl Range: 0.76-1.46 57-Wvs-283459:21 [[facility]] TSH, 3RD GENERATION TSH 2.710 {uIU/ml} Range: 0.360-3.740 Plan of Care Name Dates Details Planned Observations Planned Goals not documented Planned Encounters Appointment; MEL SWENSON M.D. On: 17-Mar-2019 9:30 Interventions Provided Discussion/Summary* Guideline Used: * [facility] [place] * Patient calling states she got a call from Dr. Swenson regarding an appointment tomorrow 11/14/18 and would like message sent telling her she will be able to make appointment. NTL notified patient will send message to Dr. Swenson Instructions Name Dates Details Instructions not documented Encounters Appointment; MEL SWENSON M.D. Encounter Diagnosis: Problem not documented On: 27-Nov-2016 13:00 Appointment; MEL SWENSON M.D. Encounter Diagnosis: Problem not documented On: 29-Mar-2017 8:00 Appointment; MEL SWENSON M.D. Encounter Diagnosis: Problem not documented On: 06-Aug-2017 8:00 Appointment; MEL SWENSON M.D. Encounter Diagnosis: Problem not documented On: 11-Dec-2017 8:00 Appointment; MEL SWENSON M.D. Encounter Diagnosis: Problem not documented On: 15-Apr-2018 8:00 Appointment; MEL SWENSON M.D. Encounter Diagnosis: Problem not documented On: 29-Jul-2018 9:00
--- OUTSIDE RECORDS SUMMARY | 2018-12-05 05:39 | XMS REPORT | Continuity of Care Document ---
Author Author [employer] Organization [employer] Address Unknown Phone Unavailable Care Team Providers Care Medication Aid Name Role Phone Flixel Photos Information Casabu Unavailable Unavailable Problems Problem Status Onset Date Classification Date Reported Comments Source Osteoporosis Active Problem 05/12/2017 John Fong Ot disrd of bone density and structure, multiple sites Active Problem 05/12/2017 John Fong Low vitamin D level Active Problem 05/12/2017 John Fong Polymyalgia rheumatica Active Problem 05/12/2017 John Fong Varicose veins of bilateral lower extremities with other complications Active Problem 05/26/2017 [facility] Cellulitis of right lower limb Active Problem 05/26/2017 [facility] 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 other part of lower leg Active Problem 05/26/2017 [facility] Unspecified retinal vascular occlusion Active Problem 01/06/2016 John Fong Osteopenia Active Problem 01/06/2016 John Fong Polymyalgia rheumatica Active Problem 01/06/2016 John Fong Osteoporosis, postmenopausal Active Diagnosis 07/02/2014 John Fong Cellulitis Active Problem 05/21/2018 [facility] Medications Medication Details Route Status Patient Instructions Ordering Provider Order Date Source Above the knee Compression Stockings as directed NA Active 20- 30mmHg [facility] Orally Active 2 MG Orally once a day Fong 08/26/2015 John Fong Medrol as directed Orally Active 2 MG Orally once a day Fong 04/13/2014 John Fong Synthroid 1 tablet on an empty stomach in the morning NA Active 100 MCG Once a day/brand necessary Benraouane 05/21/2012 [place] [employer] Synthroid 1 tablet every morning on an empty stomach Orally Active 100 MCG Orally Once a day Gerald John Fong Vitamin D 1 capsule Orally Active 2000 UNIT Orally Once a day Gerald John Fong Calcium + D 1 Orally Active 315-200 MG-UNIT Orally qd Gerald John Fong Vitamin D 1 capsule Orally Active 2000 UNIT Orally Once a day Hetal Fong Calcium + D 1 Orally Active 315-200 MG-UNIT Orally qd Hetal Fong Synthroid 1 tablet every morning on an empty stomach Orally Active 100 MCG Orally Once a day Hetal Fong Medrol take 1 tablet by mouth daily Orally Active 2 MG Orally once a day Hetal Fong Levothyroxine Sodium (Synthroid) 100 Mcg Tab Daily Active [facility] Allergies, Adverse Reactions, Alerts Substance Category Reaction Severity Reaction type Status Date Reported Comments Source Bactrim Adverse Reaction anaphylaxis Adverse Reaction Active 12/26/2016 [facility] Adverse Reaction Info Not Available Adverse Reaction Active 05/07/2017 John Fong Vancomycin RASH Unknown Allergy to Substance Active 01/27/2018 [facility] Levofloxacin GI UPSET Unknown Allergy to Substance Active 01/27/2018 [facility] Immunizations No Data Provided for This Section Results Order Name Results Value Reference Range Date Interpretation Comments Source Capillary blood glucose measurement by glucometer (mass/volume) 283 70 - 120 01/29/2018 [facility] Blood leukocytes automated count (number/volume) 4.96 4.8 - 10.8 01/29/2018 [facility] Blood erythrocytes automated count (number/volume) 3.44 3.6 - 5.1 01/29/2018 [facility] Blood hemoglobin measurement (moles/volume) 11.1 12.0 - 16.0 01/29/2018 [facility] Automated blood hematocrit (volume fraction) 33.6 34.2 - 44.1 01/29/2018 [facility] Automated erythrocyte mean corpuscular volume 97.7 81 - 99 01/29/2018 [facility] Automated erythrocyte mean corpuscular hemoglobin (mass per erythrocyte) 32.3 28 - 32 01/29/2018 [facility] Automated erythrocyte mean corpuscular hemoglobin concentration measurement (mass/volume) 33.0 31 - 35 01/29/2018 [facility] RDW BldCo-Rto 13.5 11.7 - 14.4 01/29/2018 [facility] Automated blood platelet count (count/volume) 173 140 - 360 01/29/2018 [facility] Automated blood segmented neutrophil count as percentage of total leukocytes 68.7 38.7 - 80.0 01/29/2018 [facility] Automated blood lymphocyte count as percentage ot total leukocytes 19.4 18.0 - 39.1 01/29/2018 [facility] Automated blood monocyte count as percentage of total leukocytes 9.5 4.4 - 11.3 01/29/2018 [facility] Automated blood eosinophil count as percentage of total leukocytes 1.4 0.0 - 6.0 01/29/2018 [facility] Automated blood basophil count as percentage of total leukocytes 0.4 0.0 - 1.0 01/29/2018 [facility] IM GRANULOCYTES % 0.6 0.0 - 1.0 01/29/2018 [facility] Automated blood neutrophil count 3.4 2.1 - 6.9 01/29/2018 [facility] Blood lymphocytes count (number/volume) 1.0 1.0 - 3.2 01/29/2018 [facility] Blood monocytes automated count (number/volume) 0.5 0.2 - 0.8 01/29/2018 [facility] Automated blood eosinophil count 0.1 0.0 - 0.4 01/29/2018 [facility] Automated blood basophil count (count/volume) 0.0 0.0 - 0.1 01/29/2018 [facility] Absolute Immature Granulocyte (auto 0.03 0 - 0.1 01/29/2018 [facility] Serum or plasma sodium measurement (moles/volume) 144 136 - 145 01/29/2018 [facility] Serum or plasma potassium measurement (moles/volume) 3.5 3.5 - 5.1 01/29/2018 [facility] Serum or plasma chloride measurement (moles/volume) 113 98 - 107 01/29/2018 [facility] Serum or plasma carbon dioxide, total measurement (moles/volume) 23 22 - 29 01/29/2018 [facility] Serum or plasma anion gap 11.5 8 - 16 01/29/2018 [facility] Serum or plasma urea nitrogen measurement (mass/volume) 6 7 - 26 01/29/2018 [facility] Serum or plasma creatinine measurement (mass/volume) 0.61 0.57 - 1.11 01/29/2018 [facility] Serum or plasma urea nitrogen/creatinine mass ratio 10 6 - 25 01/29/2018 [facility] Estimated glomerular filtration rate (GFR) determination > 60 60 01/29/2018 [facility] Glucose measurement 96 74 - 118 01/29/2018 [facility] Serum or plasma calcium measurement (mass/volume) 7.6 8.4 - 10.2 01/29/2018 [facility] Serum or plasma total bilirubin measurement (mass/volume) 0.4 0.2 - 1.2 01/29/2018 [facility] Aspartate Amino Transf (AST/SGOT) 22 5 - 34 01/29/2018 [facility] Serum or plasma alanine aminotransferase measurement (enzymatic activity/volume) 19 0 - 55 01/29/2018 [facility] Serum or plasma protein measurement (mass/volume) 5.0 6.5 - 8.1 01/29/2018 [facility] Serum or plasma albumin measurement (mass/volume) 2.5 3.5 - 5.0 01/29/2018 [facility] Plasma globulin measurement (mass/volume) 2.5 2.3 - 3.5 01/29/2018 [facility] Serum or plasma albumin/globulin mass ratio 1.0 0.8 - 2.0 01/29/2018 [facility] Serum or plasma alkaline phosphatase measurement (enzymatic activity/volume) 35 40 - 150 01/29/2018 [facility] Lactic Acid Level 19.0 4.5 - 19.8 01/26/2018 [facility] Bacterial blood culture Organism: NON-CATTLE FARMER SPECIES 01/26/2018 [facility] Blood culture Growth detected. Culture workup ordered. 01/26/2018 [facility] Pathology Reports No Data Provided for This Section Diagnostic Reports No Data Provided for This Section Consultation Notes No Data Provided for This Section Discharge Summaries No Data Provided for This Section History and Physicals No Data Provided for This Section Vital Signs Vital Sign Value Date Comments Source Weight 106 05/07/2017 John Sueroer Height 62 05/07/2017 Jhon Fong Temperature Oral (F) 97.0 F 05/07/2017 John Fong Heart Rate 74 05/07/2017 John Fong Diastolic (mm Hg) 74 05/07/2017 John Fong Systolic (mm Hg) 122 05/07/2017 John Sueroer Weight 104 12/26/2016 [facility] Systolic (mm Hg) 142 12/26/2016 [facility] Respitory Rate 0 12/26/2016 [facility] Heart Rate 49 12/26/2016 [facility] Temperature Oral (F) 0 F 12/26/2016 [facility] Diastolic (mm Hg) 80 12/26/2016 [facility] Weight 104 01/04/2016 John Fong Height [...] Date Status Source Michael Fong MD DEXA [id number] 04/07/2014 04/07/2014 John Fong MD DEXA [id number] 04/07/2014 04/07/2014 John Fong MD DEXA [id number] 04/07/2014 04/07/2014 John Fong MD DEXA [id number] 04/07/2014 04/07/2014 John Fong MD DEXA [id number] 04/07/2014 04/07/2014 John Fong MD DEXA [id number] 04/07/2014 04/07/2014 John Fong MD DEXA [id number] 04/07/2014 04/07/2014 John Fong MD 4m follow up [id number] 04/10/2014 04/10/2014 John Fong MD 4m follow up [id number] 04/10/2014 04/10/2014 John Fong MD 4m follow up [id number] 04/10/2014 04/10/2014 John Fong MD 4m follow up [id number] 04/10/2014 04/10/2014 Jhon Fong MD Refill [id number] 04/13/2014 04/13/2014 John Fong MD Refill [id number] 04/13/2014 04/13/2014 John Fong MD Needs call back [id number] 04/13/2014 04/13/2014 Jhon Fong MD Needs call back [id number] 04/13/2014 04/13/2014 John Fong MD Refill [id number] 04/13/2014 04/13/2014 John Fong MD Refill [id number] 04/13/2014 04/13/2014 John Fong MD Refill [id number] 04/13/2014 04/13/2014 John Fong MD Refill [id number] 04/13/2014 04/13/2014 John Fong MD Refill [id number] 04/13/2014 04/13/2014 John Fong MD Needs call back [id number] 04/13/2014 04/13/2014 John Fong MD Needs call back [id number] 04/13/2014 04/13/2014 John Fong MD Needs call back [id number] 04/13/2014 04/13/2014 John Fong MD Needs call back [id number] 04/13/2014 04/13/2014 John Fong MD Needs call back [id number] 04/13/2014 04/13/2014 John Fong MD 6M F/U [id number] 10/09/2014 10/09/2014 John Fong MD 6M F/U [id number] 10/09/2014 10/09/2014 John Fong MD 6M F/U [id number] 10/09/2014 10/09/2014 John Fong MD Unknown [id number] 03/29/2015 03/29/2015 John Fong MD Unknown [id number] 03/29/2015 03/29/2015 John Fong MD Unknown [id number] 03/29/2015 03/29/2015 John Fong MD 6 [facility] [id number] 01/04/2016 01/04/2016 John Fong MD [employer] [id number] 01/04/2016 01/04/2016 John Fong MD [employer] [id number] 01/04/2016 01/04/2016 Johnaman Fong Discharged Inpatient [id number] PATT SMITH MD 01/28/2018 02/01/2018 [facility] Departed Emergency Room [id number] LELAND CELIS MD 05/20/2018 05/20/2018 [facility] Procedures Procedure Code Date Perfomer Comments Source Computed tomography of brain without radiopaque contrast [id number] 01/31/2018 [facility] Assessment and Plan No Data Provided for This Section Plan of Care Plan of Care Date Source Discharge Date 05/20/18 7:13pm Disposition HOME, SELF-CARE Condition at Discharge Stable Instructions/Education Provided Skin [employer]ulsion Forms Provided Work/School Excuse Prescriptions See Medication Section 05/20/2018 [facility] Social History Social History Date Source Smoking Status Start Date Stop Date Never Smoker 05/20/2018 [facility] Social History ElementQualifiersDate Reported Alcohol Screening: . Points: 0, Interpretation: Negative Jan 04, 2016 Tobacco Use: . Are you a:: never smoker Jan 04, 2016 Marital Status: . Jan 04, 2016 Caffeine: no. Jan 04, 2016 Exercise: yes. gym and walking Jan 04, 2016 Alcohol: no. Jan 04, 2016 01/04/2016 John Fong Family History No Data Provided for This Section Advance Directives Order Name Results Value Date Source Advance Directives Advance Directives Directive Response Recorded Date/Time Does the patient have an advance directive? Yes 05/20/18 6:00pm If yes, is advance directive on file with [facility]? No 09/09/07 8:31am If not on file with [facility] will patient provide a copy? No 06/01/11 7:26am Do you have a Directive to Physician? Yes 12/17/18 6:00pm Do you have a Medical Power of Supervisor Sl[employer] Department? Yes 05/20/18 6:00pm Do you have an out of hospital Do Not Resuscitate Order? Yes 05/20/18 6:00pm Do you have any special needs we should be aware of? Yes 05/20/18 6:00pm Do you have a support person here with you today? Yes 05/20/18 6:00pm Did patient receive Notice of Privacy Practices? Yes 05/20/18 6:00pm Did patient receive patient rights and responsibilities? Yes 05/20/18 6:00pm 05/20/2018 [facility] Functional Status No Data Provided for This Section
[2018-12-05] MEDS ORDERED: AMLODIPINE BESYLATE 5 MG TAB PO STA (06:42)
[2018-12-05] MEDS ORDERED: CEFEPIME 1GM/NS 0.9% 50 ML 50 ML IV STA (06:42)
[2018-12-05] MEDS ORDERED: ONDANSETRON HCL INJ 2MG/ML 2ML 2 MG/ML VIAL IV PRN (06:45)
[2018-12-05] MEDS ORDERED: SODIUM CHLORIDE FLUSH 10 ML SYR INJ PRN (06:45)
[2018-12-05] MEDS ORDERED: ASPIRIN 81 MG CHEW TAB PO ONE (06:45)
--- NOTE | 2018-12-05 06:46 | Diagnostic Imaging Report ---
EXAMINATION: CXR 1 VIEW - HOPD COMPARISON: None available INDICATION: Ankle pain, hypertension ^[id number] ^[id number] DISCUSSION: Frontal view of the chest obtained at 0631 hours. HEART AND MEDIASTINUM: The cardiomediastinal silhouette is unremarkable. LINES: None. LUNGS: Diffuse hyperinflation suggestive of small airways disease. No infiltrates. No pulmonary edema PLEURA: There is trace blunting of the left lateral costophrenic angle. BONES AND SOFT TISSUES: Fusion hardware in the lower cervical spine appears intact. The bones are diffusely demineralized. There are degenerative changes of the left humeral head. The soft tissues are normal. IMPRESSION: Blunting of the left lateral costophrenic angle may be the result of pleural effusion or pleural thickening. Pulmonary hyperinflation suggestive of COPD. Signed by: Dr. Jens Medina MD on 12/05/2018 6:43 AM
[2018-12-05] MEDS ORDERED: AMLODIPINE BESYLATE 5 MG TAB ONE (06:51)
[2018-12-05] MEDS: AMLODIPINE BESYLATE 5 MG TAB PO SCH (06:59)
--- OUTSIDE RECORDS SUMMARY | 2018-12-05 07:01 | XMS REPORT | Clinical Summary ---
Author Author [facility] [employer] Address Unknown Phone Unavailable Care Team Providers Care Diagnostic Radiologist Name Role Phone Keegan Gregory MD PCP [...] Diagnosis ESTIMATED GFR Routine 07/16/2018 9:46 AM ENVIRONMENTAL MONITORING TECHNICIAN POC CREATININE Routine 07/16/2018 9:46 AM ENVIRONMENTAL MONITORING TECHNICIAN CT ABDOMEN W WO CONTRAST Routine 07/16/2018 Ectopic pancreatic tissue 9:36 AM ENVIRONMENTAL MONITORING TECHNICIAN in stomach Abdominal pain, epigastric Special screening for malignant neoplasms, colon Loss of weight after 12/04/2017 Results * Estimated GFR (07/16/2018 9:46 AM ENVIRONMENTAL MONITORING TECHNICIAN) Pathologist [facility] Estimated GFR 39 (A) mL/min/1.73 m2 [place] Comment: [facility] rpretation G1 >=90 Normal or high G2 60-89Mildly decreased K7g55-99 Mildly to moderately decreased G2g19-76 Moderately to severely decreased G4 15-29Severely decreased G5 <15Kidney failure The eGFR was calculated using the Chronic Kidney Disease Epidemiology Collaboration (CKD-EPI) equation. Interpretation is based on recommendations of the National Kidney Foundation-Kidney Disease Outcomes Quality Initiative (NKF-KDOQI) published in 2014. Specimen Blood Performing Organization Address [facility] Phone Number [address] [place] [address] PATHOLOGY AND GENOMIC MEDICINE [address] * POC creatinine (07/16/2018 9:46 AM ENVIRONMENTAL MONITORING TECHNICIAN) Pathologist [facility] POC creatinine 1.3 (H) 0.5 - 0.9 mg/dl [facility] Specimen Blood Performing Organization Address [facility] Phone Number [address] [place] [address] PATHOLOGY AND GENOMIC MEDICINE [address] * CT Abdomen W Wo Contrast (07/16/2018 9:36 AM ENVIRONMENTAL MONITORING TECHNICIAN) Specimen Narrative Performed At EXAMINATION:CT ABDOMEN W [...] 2.0 cm. No definite signs of malignancy. [facility]-[id number] Procedure Note [facility], Radiology Results Incoming - 07/16/2018 10:04 AM ENVIRONMENTAL MONITORING TECHNICIAN EXAMINATION: CT ABDOMEN W WO CONTRAST CLINICAL [...] 2.0 cm. No definite signs of malignancy. [facility]-[id number] Performing Organization Address City/State/Zipcode Phone Number [place] [address] [place] [address] after 12/04/2017 Insurance Type Payer Benefit Subscriber ID Effective Phone Address Plan / Dates Group Medicare MEDICARE MEDICARE xxxxxxxxxxx 2004- [place], PART A AND Present [place] B Commercial [employer] [place] xxxxxxxxxx 2004- L LIFE INS Present [place] Advance Directives Patient has advance care planning documents on file. For more information, michele najera contact: Vineet Jimenez [address] [place] [address]
--- OUTSIDE RECORDS SUMMARY | 2018-12-05 07:02 | XMS REPORT | Continuity of Care Document ---
Author Author [employer] Organization [employer] Address Unknown Phone Unavailable Care Team Providers Care Vocational Rehab Consultant Name Role Phone [place] Information [facility] Unavailable Unavailable Problems Problem Status Onset Date Classification Date Reported Comments Source Osteoporosis Active Problem 05/12/2017 John Fong Ot disrd of bone density and structure, multiple sites Active Problem 05/12/2017 John Fong Low vitamin D level Active Problem 05/12/2017 John Fong Polymyalgia rheumatica Active Problem 05/12/2017 John Fong Varicose veins of bilateral lower extremities with other complications Active Problem 05/26/2017 [facility] Cellulitis of right lower limb Active Problem 05/26/2017 [facility] 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 other part of lower leg Active Problem 05/26/2017 [facility] Unspecified retinal vascular occlusion Active Problem 01/06/2016 John Fong Osteopenia Active Problem 01/06/2016 John Fong Polymyalgia rheumatica Active Problem 01/06/2016 John Fong Osteoporosis, postmenopausal Active Diagnosis 07/02/2014 John Fong Cellulitis Active Problem 05/21/2018 [facility] Medications Medication Details Route Status Patient Instructions Ordering Provider Order Date Source Above the knee Compression Stockings as directed NA Active 20- 30mmHg Emygi [facility]/27[facility] Med[facility] 1 tablet Orally Active 2 MG Orally once a day Fong 08/26/2015 John Fong Medrol as directed Orally Active 2 MG Orally once a day Fong 04/13/2014 John Fong Synthroid 1 tablet on an empty stomach in the morning NA Active 100 MCG Once a day/brand necessary Benraouane 05/21/2012 [facility] Synthroid 1 tablet every morning on an [...] Sodium (Synthroid) 100 Mcg Tab Daily Active [facility] Allergies, Adverse Reactions, Alerts Substance Category Reaction Severity Reaction type Status Date Reported Comments Source Bactrim Adverse Reaction anaphylaxis Adverse Reaction Active 12/26/2016 [facility] Adverse Reaction Info Not Available Adverse Reaction Active 05/07/2017 John Fong Vancomycin RASH Unknown Allergy to Substance Active 01/27/2018 [facility] Levofloxacin GI UPSET Unknown Allergy to Substance Active 01/27/2018 [facility] Immunizations No Data Provided for This Section Results Order Name Results Value Reference Range Date Interpretation Comments Source Capillary blood glucose measurement by glucometer (mass/volume) 283 70 - 120 01/29/2018 [facility] Blood leukocytes automated count (number/volume) 4.96 4.8 - 10.8 01/29/2018 [facility] Blood erythrocytes automated count (number/volume) 3.44 3.6 - 5.1 01/29/2018 [facility] Blood hemoglobin measurement (moles/volume) 11.1 12.0 - 16.0 01/29/2018 [facility] Automated blood hematocrit (volume fraction) 33.6 34.2 - 44.1 01/29/2018 [facility] Automated erythrocyte mean corpuscular volume 97.7 81 - 99 01/29/2018 [facility] Automated erythrocyte mean corpuscular hemoglobin (mass per erythrocyte) 32.3 28 - 32 01/29/2018 [facility] Automated erythrocyte mean corpuscular hemoglobin concentration measurement (mass/volume) 33.0 31 - 35 01/29/2018 [facility] RDW BldCo-Rto 13.5 11.7 - 14.4 01/29/2018 [facility] Automated blood platelet count (count/volume) 173 140 - 360 01/29/2018 [facility] Automated blood segmented neutrophil count as percentage of total leukocytes 68.7 38.7 - 80.0 01/29/2018 [facility] Automated blood lymphocyte count as percentage ot total leukocytes 19.4 18.0 - 39.1 01/29/2018 [facility] Automated blood monocyte count as percentage of total leukocytes 9.5 4.4 - 11.3 01/29/2018 [facility] Automated blood eosinophil count as percentage of total leukocytes 1.4 0.0 - 6.0 01/29/2018 [facility] Automated blood basophil count as percentage of total leukocytes 0.4 0.0 - 1.0 01/29/2018 [facility] IM GRANULOCYTES % 0.6 0.0 - 1.0 01/29/2018 [facility] Automated blood neutrophil count 3.4 2.1 - 6.9 01/29/2018 [facility] Blood lymphocytes count (number/volume) 1.0 1.0 - 3.2 01/29/2018 [facility] Blood monocytes automated count (number/volume) 0.5 0.2 - 0.8 01/29/2018 [facility] Automated blood eosinophil count 0.1 0.0 - 0.4 01/29/2018 [facility] Automated blood basophil count (count/volume) 0.0 0.0 - 0.1 01/29/2018 [facility] Absolute Immature Granulocyte (auto 0.03 0 - 0.1 01/29/2018 [facility] Serum or plasma sodium measurement (moles/volume) 144 136 - 145 01/29/2018 [facility] Serum or plasma potassium measurement (moles/volume) 3.5 3.5 - 5.1 01/29/2018 [facility] Serum or plasma chloride measurement (moles/volume) 113 98 - 107 01/29/2018 [facility] Serum or plasma carbon dioxide, total measurement (moles/volume) 23 22 - 29 01/29/2018 [facility] Serum or plasma anion gap 11.5 8 - 16 01/29/2018 [facility] Serum or plasma urea nitrogen measurement (mass/volume) 6 7 - 26 01/29/2018 [facility] Serum or plasma creatinine measurement (mass/volume) 0.61 0.57 - 1.11 01/29/2018 [facility] Serum or plasma urea nitrogen/creatinine mass ratio 10 6 - 25 01/29/2018 [facility] Estimated glomerular filtration rate (GFR) determination > 60 60 01/29/2018 [facility] Glucose measurement 96 74 - 118 01/29/2018 [facility] Serum or plasma calcium measurement (mass/volume) 7.6 8.4 - 10.2 01/29/2018 [facility] Serum or plasma total bilirubin measurement (mass/volume) 0.4 0.2 - 1.2 01/29/2018 [facility] Aspartate Amino Transf (AST/SGOT) 22 5 - 34 01/29/2018 [facility] Serum or plasma alanine aminotransferase measurement (enzymatic activity/volume) 19 0 - 55 01/29/2018 [facility] Serum or plasma protein measurement (mass/volume) 5.0 6.5 - 8.1 01/29/2018 [facility] Serum or plasma albumin measurement (mass/volume) 2.5 3.5 - 5.0 01/29/2018 [facility] Plasma globulin measurement (mass/volume) 2.5 2.3 - 3.5 01/29/2018 [facility] Serum or plasma albumin/globulin mass ratio 1.0 0.8 - 2.0 01/29/2018 [facility] Serum or plasma alkaline phosphatase measurement (enzymatic activity/volume) 35 40 - 150 01/29/2018 [facility] Lactic Acid Level 19.0 4.5 - 19.8 01/26/2018 [facility] Bacterial blood culture Organism: NON-JTAC SPECIES 01/26/2018 [facility] Blood culture Growth detected. Culture workup ordered. 01/26/2018 [facility] Pathology Reports No Data Provided for This [...] 122 05/07/2017 John Sueroer Weight 104 12/26/2016 [facility] Systolic (mm Hg) 142 12/26/2016 [facility] Respitory Rate 0 12/26/2016 [facility] Heart Rate 49 12/26/2016 [facility] Temperature Oral (F) 0 F 12/26/2016 [facility] Diastolic (mm Hg) 80 12/26/2016 [facility] Weight 104 01/04/2016 John Fong Height [...] Date Status Source Michael Fong MD DEXA [id number] 04/07/2014 04/07/2014 John Fong MD DEXA [id number] 04/07/2014 04/07/2014 John Fong MD DEXA [id number] 04/07/2014 04/07/2014 John Fong MD DEXA [id number] 04/07/2014 04/07/2014 John Fong MD DEXA [id number] 04/07/2014 04/07/2014 John Fong MD DEXA [id number] 04/07/2014 04/07/2014 John Fong MD DEXA [id number] 04/07/2014 04/07/2014 John Fong MD 4m follow up [id number] 04/10/2014 04/10/2014 John Fong MD 4m follow up [id number] 04/10/2014 04/10/2014 John Fong MD 4m follow up [id number] 04/10/2014 04/10/2014 John Fong MD 4m follow up [id number] 04/10/2014 04/10/2014 John Fong MD Refill [id number] 04/13/2014 04/13/2014 John Fong MD Refill [id number] 04/13/2014 04/13/2014 John Fong MD Needs call back [id number] 04/13/2014 04/13/2014 John Fong MD Needs call back [id number] 04/13/2014 04/13/2014 John Fong MD Refill [id number] 04/13/2014 04/13/2014 John Fnog MD Refill [id number] 04/13/2014 04/13/2014 John Fong MD Refill [id number] 04/13/2014 04/13/2014 John Fong MD Refill [id number] 04/13/2014 04/13/2014 John Fong MD Refill [id number] 04/13/2014 04/13/2014 John Fong MD Needs call back [id number] 04/13/2014 04/13/2014 John Fong MD Needs call back [id number] 04/13/2014 04/13/2014 John Fong MD Needs call back [id number] 04/13/2014 04/13/2014 John Fong MD Needs call back [id number] 04/13/2014 04/13/2014 John Fong MD Needs call back [id number] 04/13/2014 04/13/2014 John Fong MD 6M F/U [id number] 10/09/2014 10/09/2014 John Fong MD 6M F/U [id number] 10/09/2014 10/09/2014 John Fong MD 6M F/U [id number] 10/09/2014 10/09/2014 John Fong MD Unknown [id number] 03/29/2015 03/29/2015 John Fong MD Unknown [id number] 03/29/2015 03/29/2015 John Fong MD Unknown [id number] 03/29/2015 03/29/2015 John Fong MD [facility] [id number] 01/04/2016 01/04/2016 John Fong MD Prolia [id number] 01/04/2016 01/04/2016 John Fong MD [employer]ia [id number] 01/04/2016 01/04/2016 Johnaman Fong Discharged Inpatient [id number] PATT SMITH MD 01/28/2018 02/01/2018 [facility] Departed Emergency Room [id number] LELAND CELIS MD 05/20/2018 05/20/2018 [facility] Procedures Procedure Code Date Perfomer Comments Source Computed tomography of brain without radiopaque contrast [id number] 01/31/2018 LUIS [facility] Assessment and Plan No Data Provided for This Section Plan of Care Plan of Care Date Source Discharge Date 05/20/18 7:13pm Disposition HOME, SELF-CARE Condition at Discharge Stable Instructions/Education Provided Skin [employer]ulsion Forms Provided Work/School Excuse Prescriptions See Medication Section 05/20/2018 [facility] Social History Social History Date Source Smoking Status Start Date Stop Date Never Smoker 05/20/2018 [facility] Social History ElementQualifiersDate Reported Alcohol Screening: . [...] yes, is advance directive on file with [facility]? No 09/09/07 8:31am If not on file with [facility] will patient provide a copy? No 06/01/11 7:26am Do you have a Directive to Physician? Yes 12/17/18 6:00pm Do you have a Medical Power of Hide Stretcher Hand? Yes 05/20/18 6:00pm Do you have an [...] rights and responsibilities? Yes 05/20/18 6:00pm 05/20/2018 [facility] Functional Status No Data Provided for This Section
--- NOTE | 2018-12-05 07:11 | NUR ---
Called [facility] for transport of pt to room 200
--- NOTE | 2018-12-05 07:31 | NUR ---
assumed care of pt
--- NOTE | 2018-12-05 07:50 | NUR ---
Report to Cydney
--- NOTE | 2018-12-05 08:29 | NUR ---
[facility] here to transport pt to room 183
[2018-12-05 08:52] VITALS: BP 212/87
[2018-12-05 09:34] VITALS: BP 212/87
[2018-12-05] MEDS ORDERED: METOPROLOL TART25 MG PO (09:46)
[2018-12-05 12:00] VITALS: BP 156/79
[2018-12-05 14:27] LABS: CREATINE KINASE MB 1.5 ng/mL (0-5.0)
[2018-12-05 16:00] VITALS: BP 113/63
[2018-12-05] MEDS ORDERED: CEFEPIME HCL 1 GM VIAL IV SCH (18:00)
[2018-12-05] MEDS ORDERED: CEFEPIME 1GM/NS 0.9% 50 ML 50 ML IV SCH (18:00)
[2018-12-05] MEDS ORDERED: SODIUM CHLORIDE 0.9% 250ML 250 ML ONE (18:07)
--- NOTE | 2018-12-05 19:13 | NUR ---
REPORT GIVEN TO ON COMING NURSE. PT STABLE.
[2018-12-05] MEDS: ACETAMINOPHEN 325 MG TAB PO PRN (19:54)
[2018-12-05 20:00] VITALS: BP 175/76
[2018-12-05] MEDS: METOPROLOL TARTRATE 25 MG TAB PO SCH (20:22)
[2018-12-05 21:30] VITALS: BP 175/76
--- NOTE | 2018-12-05 21:31 | NUR ---
RECEIVED PATIENT FROM OBS. PATIENT IS AAOX3, RESTING IN BED. RESP EVEN AND UNLABORED. NO ACUTE DISTRESS NOTED. RIGHT LEG CELLULITIS NOTED, REDNESS AND MARKED NOTED. GENERAL BRUISE NOTED. ORIENTED TO ROOM. DAUGHTER AT BED SIDE. BED ALARM IS ON. BED LOW/LOCKED. CONTINUE TO MONITOR CLOSELY
[2018-12-06] VITALS (8 sets, daily range): BP systolic 131–154; BP diastolic 59–80
--- NOTE | 2018-12-06 | NUR ---
NOTIFIED DR SMITH PATIENT'S GETTING CONFUSE, TRYING TO GET OUT OF BAD. NEW ORDER FOR PRN SITTER. NOTIFIED CHARGE NURSE
--- NOTE | 2018-12-06 00:15 | NUR ---
SITTER IS AT BED SIDE WITH PATIENT AT THIS TIME
[2018-12-06] MEDS ORDERED: SODIUM CHLORIDE 0.9% 250ML 250 ML ONE (05:03)
[2018-12-06] MEDS: LEVOTHYROXINE SODIUM 100 MCG TAB PO SCH (05:28)
[2018-12-06] MEDS: CEFEPIME 1GM/NS 0.9% 50 ML 50 ML IV SCH ×3 (05:28→21:38)
[2018-12-06] MEDS: ACETAMINOPHEN 325 MG TAB PO PRN (05:30)
[2018-12-06 06:06] LABS: BASOPHILS # (AUTO) 0.1 (0.0-0.1); BASOPHILS % 0.5 % (0.0-1.0); EOSINOPHILS % 0.4 % (0.0-6.0); HEMATOCRIT 42.5 % (34.2-44.1); LYMPHOCYTES # (AUTO) 1.3 (1.0-3.2); LYMPHOCYTES % 13.7 % (18.0-39.1); MEAN CORPUSCULAR HEMOGLOBIN 31.7 pg (28-32); MEAN CORPUSCULAR HGB CONC 32.9 g/dL (31-35); MEAN CORPUSCULAR VOLUME 96.4 fL (81-99); MONOCYTES # (AUTO) 0.9 (0.2-0.8); MONOCYTES % 9.2 % (4.4-11.3); NEUTROPHILS % 74.9 % (38.7-80.0); PLATELET COUNT 213 x10e3/uL (140-360); RED BLOOD COUNT 4.41 x10e6/uL (3.6-5.1); RED CELL DISTRIBUTION WIDTH 14.5 % (11.7-14.4)
[2018-12-06 06:10] LABS: ANION GAP 14.1 mmol/L (8-16); BLOOD UREA NITROGEN 13 mg/dL (7-26); BUN/CREATININE RATIO 19 (6-25); CALCIUM 9.7 mg/dL (8.4-10.2); CARBON DIOXIDE 27 mmol/L (22-29); CHLORIDE 105 mmol/L (98-107); CREATININE, SERUM 0.67 mg/dL (0.57-1.11); EST GLOMERULAR FILTRATION RATE > 60 ML/MIN (60-); GLUCOSE 118 mg/dL (74-118); POTASSIUM 4.1 mmol/L (3.5-5.1); SODIUM 142 mmol/L (136-145)
[2018-12-06 06:36] LABS: CREATINE KINASE MB 1.3 ng/mL (0-5.0)
[2018-12-06] MEDS: AMLODIPINE BESYLATE 5 MG TAB PO SCH (08:31)
[2018-12-06] MEDS: METOPROLOL TARTRATE 25 MG TAB PO SCH ×2 (08:31→16:49)
--- NOTE | 2018-12-06 19:00 | NUR ---
REPORT GIVEN TO ONCOMING NURSE OF PATIENT'S STATUS. NO S/S OF ACUTE DISTRESS NOTED.
[2018-12-07] VITALS (9 sets, daily range): BP systolic 110–141; BP diastolic 54–64
[2018-12-07] MEDS: CEFEPIME 1GM/NS 0.9% 50 ML 50 ML IV SCH ×3 (05:57→22:09)
[2018-12-07] MEDS: LEVOTHYROXINE SODIUM 100 MCG TAB PO SCH (05:57)
[2018-12-07] MEDS: METOPROLOL TARTRATE 25 MG TAB PO SCH ×2 (10:01→17:19)
[2018-12-07] MEDS: AMLODIPINE BESYLATE 5 MG TAB PO SCH (10:01)
[2018-12-07] MEDS ORDERED: HALOPERIDOL LACTATE 5 MG/ML VIAL IM PRN (15:15)
--- NOTE | 2018-12-07 15:28 | NUR ---
MD notified regarding MRI not being able to be done due to equipment not being compatible with MRI safe devices.
--- NOTE | 2018-12-07 19:15 | NUR ---
PATIENT AMBULATING IN THE DUONG, HER IS AT THE BEDSIDE. GENERALIZED BRUISES OBSERVED TO THE ARMS AND THE LEGS. NO DISTRESS OBSERVED, SHE DENIES PAIN.
--- NOTE | 2018-12-07 21:08 | NUR ---
PATIENT IS CONFUSED AND WANTING HER FAMILY MEMBERS. SHE STATED "MY DAUGHTER IS TRYING TO GET RIDE OF ME." THE PATIENT IS ALERT AND ORIENTED TO SELF AND PLACE, SHE'S NOT AGITATED AND SHE DENIES PAIN. SHE REMOVED HER TELEMETRY, SHE'S PUT IN THE WHEEL CHAIR AND WHEELED AROUND BY THE TECH AT THIS TIME.
--- NOTE | 2018-12-07 23:45 | NUR ---
PATIENT ASSISTED TO THE RESTROOM TO VOID, SHE'S NOW BACK IN BED WITHOUT ACUTE DISTRESS. BED ALARM ON, CALL LIGHT WITHIN EASY REACH.
[2018-12-08] VITALS (8 sets, daily range): BP systolic 111–145; BP diastolic 55–83
--- NOTE | 2018-12-08 02:26 | NUR ---
WALKING ROUNDS MADE, PATIENT OBSERVED SOUNDLY ASLEEP. LEGS ELEVATED, BED ALARM ON, CALL LIGHT WITHIN EASY REACH. SITTING OUTSIDE THE DOOR MONITORING THE PATIENT CLOSELY.
--- NOTE | 2018-12-08 05:19 | NUR ---
PATIENT UP TO USE THE RESTROOM, THE SWELLING HAS DECREASE TO THE LEG. SHE DENIES PAIN AT THIS TIME. SHE'S INSTRUCTED TO CALL FOR ASSISTANCE NEEDED.
[2018-12-08] MEDS: CEFEPIME 1GM/NS 0.9% 50 ML 50 ML IV SCH ×3 (05:36→22:00)
[2018-12-08] MEDS: LEVOTHYROXINE SODIUM 100 MCG TAB PO SCH (05:36)
[2018-12-08] MEDS: METOPROLOL TARTRATE 25 MG TAB PO SCH ×2 (08:10→17:47)
[2018-12-08] MEDS: AMLODIPINE BESYLATE 5 MG TAB PO SCH (08:10)
[2018-12-08] MEDS: ACETAMINOPHEN 325 MG TAB PO PRN (14:45)
--- NOTE | 2018-12-08 19:28 | NUR ---
Patient received lying in bed. AAO x 3. Family at bedside. Patient had no complaints of pain. Respirations even and non-labored. Fall precautions implemented. Telemetry in place (SR at 70). Patient instructed to call for assistance when needed. Call light within reach.
[2018-12-09] VITALS (7 sets, daily range): BP systolic 124–165; BP diastolic 59–72
--- NOTE | 2018-12-09 06:30 | NUR ---
Patient's IV in right arm infiltrated. Old IV removed with tip intact. New IV inserted in Right forearm 22G. Patient tolerated well.
[2018-12-09] MEDS: LEVOTHYROXINE SODIUM 100 MCG TAB PO SCH (06:43)
[2018-12-09] MEDS: CEFEPIME 1GM/NS 0.9% 50 ML 50 ML IV SCH ×2 (06:44→14:26)
--- NOTE | 2018-12-09 07:28 | NUR ---
Shift report given to oncoming nurse.
[2018-12-09] MEDS: AMLODIPINE BESYLATE 5 MG TAB PO SCH (08:48)
[2018-12-09] MEDS: METOPROLOL TARTRATE 25 MG TAB PO SCH (08:48)
--- NOTE | 2018-12-09 12:54 | NUR ---
Consult for skin tear to R lateral ankle due to striking on hospital equipment (bed or IV pole per patient). The patient has bruising over her arms and legs. Patient has varicosities over bilateral lower legs. she has pen markings on legs marking the cellulitis on admission. She has had a septic episode in the past with a scratch on her leg. She states she has swelling in the lower extremity from time to time. Her extremities appear very tiny, but upon palpation, there is edema at the ankle. She denies having seen a vein specialist in the past and states she has never worn compression stockings. I am able to palpate Dorsalis pedis pulses bilaterally, but posterior tib is difficult due to edema. The injury to R lateral ankle has been seen per Dr. Gregory and is currently being treated with Xeroform gauze and Kerlix. We will continue with this treatment.
--- NOTE | 2018-12-09 16:50 | NUR ---
PIV removed with tip intact. patient escorted to front lobby entrance where daughter awaited in private auto. all personal belongings, RX and d/c instructions in hand at time of d/c.
--- NOTE | 2018-12-10 12:01 | Discharge Summary ---
DISCHARGE DIAGNOSES: 1. Right lower extremity cellulitis. 2. Dementia with behavioral changes. 3. Hypertension. 4. Hypothyroidism. HISTORY OF PRESENT ILLNESS AND HOSPITAL COURSE: See hospital chart for full details. The patient is a lady, who presented with acute onset of right lower extremity cellulitis from below the knees and above the ankle with no open wounds. She was placed on IV antibiotics with significant daily improvement. At the time of discharge, it was significantly improved. Due to the family's wishes, they really wanted the patient to go home because she had a lot of issues with her dementia, behavioral disturbance from , which at times required a sitter or a family member present at all times, so she was discharged home under the family's care with followup each day this week in my office to continue with daily intramuscular shots. Please see hospital chart for full details. MD KAILEE Delgado/SARAHI /[id number]
== END 2018-12-09 16:51 | disposition home or self-care (01) ==
LOC: FSED 05:34 → ERHOLD 06:44 → IMCU 08:47 → MED/SURG2 21:25
PROVIDERS: ADMIT Internal Medicine; ATTEND Internal Medicine
DX: L03.115 Cellulitis of right lower limb (principal); F03.91 Unspecified dementia, unspecified severity, with behavioral disturbance; I10 Essential (primary) hypertension; E03.9 Hypothyroidism, unspecified; J44.9 Chronic obstructive pulmonary disease, unspecified; M19.90 Unspecified osteoarthritis, unspecified site
CPT/HCPCS: 36415 ×2; 71045; 80048 ×2; 80076; 81003; 82550 ×2; 82553 ×2; 84484 ×2; 85025 ×2; 87040; 93005; 96367; 97116; 97161; 99284; G0378 ×5; J0692 ×5; J2405; J7050 ×2; 96365

== ENCOUNTER → 2020-01-27 | Outpatient (CLI) | payer MEDICARE, OTHER ==
[~2020-01-27] MED LIST changes: +METOPROLOL TART25 MG PO
== END ==
LOC: RAD 13:25
PROVIDERS: ATTEND Surgery
DX: R60.0 Localized edema (principal)
CPT/HCPCS: 93971

== ENCOUNTER → 2021-02-18 | Outpatient (CLI) | payer MEDICARE, OTHER | LOC: RAD 09:17 | PROVIDERS: ATTEND Internal Medicine | DX: R60.0 Localized edema (principal) | CPT/HCPCS: 93970 ==